=== PATIENT | female | born 1985 | race African-American/Black ===

== ENCOUNTER 2024-03-22 14:07 | Emergency (ER) | payer MEDICAID ==
[~2024-03-22] VITALS: Ht 175.3 cm; Wt 106.0 kg
[2024-03-22 14:22] VITALS: O2SAT 100
[2024-03-22 19:53] VITALS: BP 165/90; PULSE 75; RESP 18; TEMP 98.8
== END 2024-03-22 19:53 | disposition home or self-care (01) ==
LOC: ER 14:07
DX: S49.91XA Unspecified injury of right shoulder and upper arm, initial encounter (principal); G89.11 Acute pain due to trauma; I10 Essential (primary) hypertension; Z98.890 Other specified postprocedural states; V49.9XXA Car occupant (driver) (passenger) injured in unspecified traffic accident, initial encounter; Y93.89 Activity, other specified; Y92.89 Other specified places as the place of occurrence of the external cause; Y99.8 Other external cause status
CPT/HCPCS: 73030; 99283